=== PATIENT | female | born 1965 | race Caucasian/White ===

== ENCOUNTER → 2017-04-21 | Outpatient (CLI) | payer OTHER ==
[~2017-04-21] MED LIST: CHOL5000 PO; DEXL60CA PO; DULO60CA7 PO; ISOM1CAP PO; LACT1CAP37 PO; LAMO50TA PO; LEVO100T PO; LIOT5TAB6 PO; LUBI24CA5 PO; METHYLCOBALAMIN IM; ONDA4TAB7 PO; PANT40TA3 PO; PROG100C4 PO; PROM25SU34 PO; RIVA20TA PO; SELE200T10 PO; SUMA20SP NAS; THYR120T PO; TOPI15CA4 PO; TRAZ100T15 PO; VENL150T PO; VENL37.52 PO; VITA0.4T6 PO; WARF5TAB PO; [UNRECOGNIZED DRUG - CODE] IM; magnesium PO
== END | disposition home or self-care (01) ==
LOC: CFH 12:45
PROVIDERS: ATTEND Family Medicine
DX: Z12.31 Encounter for screening mammogram for malignant neoplasm of breast (principal)
CPT/HCPCS: 77063; G0202

== ENCOUNTER → 2017-07-09 | Outpatient (CLI) | payer OTHER ==
[~2017-07-09] MED LIST changes: +ASCO100019 PO; +BUTA1CAP60 PO; -DEXL60CA PO; +DEXL60CA2 PO; +LIOT5TAB10 PO; -LIOT5TAB6 PO; +LIPA1CAP45 PO; -LUBI24CA5 PO; +LUBI24CA7 PO; +PROG100C16 PO; -PROG100C4 PO; +PROM25TA10 PO; +TOPI100T8 PO; +TRAZ50TA18 PO
== END | disposition home or self-care (01) ==
LOC: STAR 13:28
PROVIDERS: ATTEND Surgery
DX: Z02.9 Encounter for administrative examinations, unspecified (principal)

== ENCOUNTER 2017-07-14 06:24 | Day surgery (SDC) | payer OTHER ==
[~2017-07-14] VITALS: Ht 175.3 cm; Wt 102.8 kg
[2017-07-14] MEDS ORDERED: LACTATED RINGERS 1,000 ML IV SCH (07:04)
[2017-07-14] MEDS ORDERED: BUPIVACAINE/PF-EPI 0.25% 1:200K ONE (07:05)
[2017-07-14 07:31] VITALS: BP 119/77
[2017-07-14] MEDS ORDERED: FENTANYL PF 100 MCG/2ML ONE ×3 (07:34→10:02)
[2017-07-14] MEDS ORDERED: HYDROmorphone 1 MG/ML, 1ML ONE (07:34)
[2017-07-14] MEDS ORDERED: MIDAZOLAM 1 MG/ML, 2ML ONE (07:36)
[2017-07-14] MEDS ORDERED: ROCURONIUM 10 MG/ML ONE (08:31)
[2017-07-14] MEDS ORDERED: PROPOFOL 10 MG/ML, 20ML ONE (08:31)
[2017-07-14] MEDS ORDERED: ONDANSETRON 2MG/ML, 2ML ONE (08:31)
[2017-07-14] MEDS ORDERED: CEFAZOLIN 1,000 MG ONE (08:31)
[2017-07-14] MEDS ORDERED: DEXAMETHASONE 4 MG/ML, 1ML ONE (08:31)
[2017-07-14] MEDS ORDERED: NEOSTIGMINE 1 MG/ML, 10ML ONE (08:31)
[2017-07-14] MEDS ORDERED: HYDROcodone/APAP 7.5-325MG/15ML UDC PO PRN (09:00)
[2017-07-14] MEDS ORDERED: ONDANSETRON 2MG/ML, 2ML IVPush PRN (09:00)
[2017-07-14] MEDS ORDERED: MEPERIDINE/PF 25MG/0.5ML IVPush PRN (09:00)
[2017-07-14] MEDS ORDERED: ACETAMINOPHEN 325 MG TABLET PO PRN (09:00)
[2017-07-14] MEDS ORDERED: KETOROLAC 30 MG/1 ML IV PRN (09:00)
[2017-07-14] MEDS ORDERED: OXYcodone 5 MG/5 ML ORAL.SOL UDC PO PRN (09:00)
[2017-07-14] MEDS ORDERED: PROMETHAZINE 25 MG/ML, 1ML IV PRN (09:00)
[2017-07-14] MEDS ORDERED: HYDROmorphone 1 MG/ML, 1ML IV PRN (09:00)
[2017-07-14] MEDS ORDERED: ACETAMINOPHEN 650 MG/20.3 ML UDC ONE (09:25)
[2017-07-14] MEDS ORDERED: PROMETHAZINE 25 MG/ML, 1ML ONE (09:26)
[2017-07-14] MEDS ORDERED: OXYcodone 5 MG/5 ML ORAL.SOL UDC ONE (09:26)
[2017-07-14] MEDS: FENTANYL PF 100 MCG/2ML IV PRN ×3 (09:32→10:05)
[2017-07-14] MEDS ORDERED: morphine SULFATE 10 MG/ML, 1ML IVPush PRN (11:30)
== END 2017-07-14 14:00 | disposition home or self-care (01) ==
LOC: OUT 06:24
PROVIDERS: ATTEND Surgery
DX: K81.1 Chronic cholecystitis (principal)
CPT/HCPCS: 47562; 88304; C1729; J0690; J1100; J1170; J2250; J2405; J2550; J2704; J2710; J3010; J7120

== ENCOUNTER → 2018-07-27 | Outpatient (CLI) | payer OTHER ==
[~2018-07-27] MED LIST changes: +TRAZ-136 PO; +TRAZ-137 PO; -TRAZ100T15 PO; -TRAZ50TA18 PO
== END | disposition home or self-care (01) ==
LOC: CFH 13:26
PROVIDERS: ATTEND Family Medicine
DX: Z12.31 Encounter for screening mammogram for malignant neoplasm of breast (principal)
CPT/HCPCS: 77067

== ENCOUNTER 2019-05-26 09:11 | Outpatient (CLI) | payer OTHER | END 2019-05-26 23:59 | disposition home or self-care (01) | LOC: CFH 09:11 | PROVIDERS: ATTEND Family Medicine | DX: N63.0 Unspecified lump in unspecified breast (principal) | CPT/HCPCS: 76642; 77066; G0279 ==

== ENCOUNTER → 2020-07-12 | Outpatient (CLI) | payer OTHER ==
[~2020-07-12] MED LIST changes: -TRAZ-136 PO; -TRAZ-137 PO; +TRAZ-175 PO; +TRAZ50TA66 PO; -WARF5TAB PO; +WARF5TAB2 PO
== END | disposition home or self-care (01) ==
LOC: CFH 15:03
PROVIDERS: ATTEND Family Medicine
DX: Z12.31 Encounter for screening mammogram for malignant neoplasm of breast (principal); N60.02 Solitary cyst of left breast; N60.01 Solitary cyst of right breast
CPT/HCPCS: 76641; 77063; 77067